=== PATIENT | female | born 1940 | race Caucasian/White ===

== ENCOUNTER → 2018-10-23 17:23 | Emergency (ER) | payer MEDICARE ==
[~2018-10-23 17:23] MED LIST: ALPRAZolam TAB* 0.5 MG PO ONE; Metoprolol Tartrate IV* 1 MG/ML 5 ML VIAL IV ONE; Metoprolol Tartrate TAB* 25 MG PO ONE; Potassium Chlor TAB* 20 MEQ TAB.ER PO ONE
[2018-10-23 18:23] LABS: Urine Appearance Clear; Urine Bacteria Absent (Absent); Urine Bilirubin Negative (Negative); Urine Blood Negative (Negative); Urine Color Yellow; Urine Glucose Negative (Negative); Urine Ketones Negative (Negative); Urine Nitrite Negative (Negative); Urine Protein Negative (Negative); Urine Red Blood Cell Absent (Absent); Urine Specific Gravity 1.004 (1.010-1.030); Urine Urobilinogen Negative (Negative); Urine White Blood Cell 1+(6-10/hpf) (Absent)
--- NOTE | 2018-10-23 21:38 | ED ---
Complex/Multi-Sys Presentation - HPI Summary HPI Summary: Patient is a 78 y/o F presenting to ED with complaints of palpitations and inability to urinate. Palpitations onset around 1630 today. Patient called PCP office today and was advised to come to [facility]. She additionally notes that she has been unable to urinate for the past two days. She states that she was at [facility] for bladder infection and had aflutter at the time. She notes no issues with urination previously. Pain is denied. Patient does not have urge to urinate at present. She states she was put on cardizem, but she had a reaction to cardizem and was subsequently advised to stop taking this medication. She states she became dizzy and experienced abdominal pain with cardizem. Patient is on Eliquis, which she has been on since leaving [facility], [place]. She is on a diuretic since yesterday and has bisoprolol, which she reports she was told to start taking tomorrow. On triage, pain is denied, nothing is noted to aggravate/alleviate Sx. Home medications and allergies are reviewed. - History Of Current Complaint Chief Complaint: EDUrogenitalProblems Time Seen by Provider: 10/23/18 21:07 Hx Obtained From: Patient Onset/Duration: Lasting Hours - palpitations, Lasting Days - inability to urinate, Still Present Timing: Hours - palpitations, Days - inability to urinate Severity Currently: None Aggravating Factor(s): nothing Alleviating Factor(s): nothing Associated Signs And Symptoms: Positive: Palpitations, Other - inability to urinate - Allergies/Home Medications Allergies/Adverse Reactions: Allergies Allergy/AdvReac Type Severity Reaction Status Date / Time amoxicillin Allergy Rash Verified 10/23/18 17:26 Home Medications: Home Medications Apixaban* [Eliquis*] 5 mg PO BID 10/23/18 [History Confirmed 10/23/18] Bisoprolol TAB* [Zebeta TAB*] 2.5 mg PO DAILY 10/23/18 [History Confirmed ] Gabapentin CAP(*) [Neurontin 100 mg CAP(*)] 100 mg PO TID 10/23/18 [History Confirmed 10/23/18] Torsemide TAB* [Demadex 20 MG*] 10 mg PO DAILY 10/23/18 [History Confirmed 10/23] PMH/Surg Hx/FS Hx/Imm Hx Endocrine/Hematology History: Reports: Hx Thyroid Disease - HYPOTHYROIDISM Musculoskeletal History: Reports: Hx Arthritis - BILATERAL FEET, HANDS, BACK Sensory History: Denies: Hx Contacts or Glasses, Hx Hearing Aid Opthamlomology History: Denies: Hx Contacts or Glasses - Surgical History Surgery Procedure, Year, and Place: ROTATOR CUFF SURGERY Hx Anesthesia Reactions: No Infectious Disease History: No Infectious Disease History: Denies: Traveled Outside the [place] in Last 30 Days - Social History Alcohol Use: Daily Substance Use Type: Reports: None Substance Use Comment - Amount & Last Used: 4 cups of coffee daily Smoking Status (MU): Never Smoked Tobacco Type: Cigarettes Amount Used/How Often: 1 PACK PER WEEK, 7 YEARS Length of Time of Smoking/Using Tobacco: 7 YEARS Have You Smoked in the Last Year: No Review of Systems Positive: Palpitations Genitourinary: Other - positive - urinary retention; negative - urge to urinate , pain All Other Systems Reviewed And Are Negative: Yes Physical Exam - Summary Physical Exam Summary: VITAL SIGNS: Reviewed. GENERAL: Patient is a well-developed and nourished female who is lying comfortable in the stretcher. Patient is not in any acute respiratory distress. HEAD AND FACE: No signs of trauma. No ecchymosis, hematomas or skull depressions. No sinus tenderness. EYES: PERRLA, EOMI x 2, No injected conjunctiva, no nystagmus. EARS: Hearing grossly intact. Ear canals and tympanic membranes are within normal limits. MOUTH: Oropharynx within normal limits. NECK: Supple, trachea is midline, no adenopathy, no JVD, no carotid bruit, no c- spine tenderness, neck with full ROM CHEST: Symmetric, no tenderness at palpation LUNGS: Clear to auscultation bilaterally. No wheezing or crackles. CVS: irregularly irregular, S1 and S2 present, no murmurs or gallops appreciated. ABDOMEN: Soft, non-tender. Suprapubic distention consistent with full bladder. No rebound no guarding, and no masses palpated. Bowel sounds are normal. EXTREMITIES: FROM in all major joints, no cyanosis or clubbing, BLE edema NEURO: Alert and oriented x 3. No acute neurological deficits. Speech is normal and follows commands. Neuro exam intact. SKIN: Dry and warm Triage Information Reviewed: Yes Vital Signs On Initial Exam: Initial Vitals Temp Pulse Resp BP Pulse Ox 98.6 F 83 18 128/102 98 10/23/18 17:26 10/23/18 17:26 10/23/18 17:26 10/23/18 17:26 10/23/18 17:26 Vital Signs Reviewed: Yes Diagnostics - Vital Signs Vital Signs Temp Pulse Resp BP Pulse Ox 10/23/18 19:33 97.7 F 120 18 154/105 99 10/23/18 17:26 98.6 F 83 18 128/102 98 - Laboratory Lab Results: Lab Results 10/23/18 Range/Units 17:50 Urine Color Yellow Urine Appearance Clear Urine pH 7.0 (5-9) Ur Specific [place] 1.004 L (1.010-1.030) Urine Protein Negative (Negative) Urine Ketones Negative (Negative) Urine Blood Negative (Negative) Urine Nitrate Negative (Negative) Urine Bilirubin Negative (Negative) Urine Urobilinogen Negative (Negative) Ur Leukocyte Esterase Trace A (Negative) Urine WBC (Auto) 1+(6-10/hpf) A (Absent) Urine RBC (Auto) Absent (Absent) Urine Bacteria Absent (Absent) Urine Glucose Negative (Negative) Result Diagrams: 10/23/18 22:17 10/23/18 22:17 Lab Statement: Any lab studies that have been ordered have been reviewed, and results considered in the medical decision making process. - Radiology CXR Radiology Interpretation Completed By: ED Physician Summary of Radiographic Findings: CXR showed no acute process, pending official report. - EKG 1942 Cardiac Rate: Other Rate - afib with rate of 143 BPM EKG Rhythm: Atrial Fibrillation ST Segment: Non-Specific Summary of EKG Findings: EKG showed afib with rate of 143 BPM, non-specific ST wave changes. Complex Multi-Symp Course/Dx Course Of Treatment: Patient is a 78 y/o F presenting to ED with complaints of palpitations and inability to urinate. Palpitations onset around 1630 today. She additionally notes that she has been unable to urinate for the past two days. She states that she was at [facility] for bladder infection and had aflutter at the time. She notes no issues with urination previously. Pain is denied. Patient does not have urge to urinate at present. She states she was put on cardizem, but she had a reaction to cardizem and was subsequently advised to stop taking this medication. She states she became dizzy and experienced abdominal pain with cardizem. Patient is on Eliquis, which she has been on since leaving [facility], [place]. She is on a diuretic since yesterday and has bisoprolol, which she reports she was told to start taking tomorrow. On physical exam, patient is noted to be irregularly irregular, has suprapubic distention consistent with full bladder, and BLE edema. neuro exam intact. EKG showed afib with rate of 143 BPM, non-specific ST wave changes. CXR no acute process. Labs showed MCH 33, absolute neuts 7.9, absolute lymphs 0.8, absolute monos 0.9, INR 1.42, APTT 40, sodium 133, potassium 3.4, chloride 97, glucose 107, AST 47, ALT 60, trop 0, BNP 342, TSH 32.04. UA showed trace leukocyte esterase and 1+ WBC. During ED course, patient received Xanax 0.5 mg PO, Lopressor 5 mg IV, Lopressor 25 mg PO, and klor con er tab 40 meq PO. Bladder scan had showed volume > 1000 cc, carroll catheter was placed. Patient has Hx of aflutter, patient is currently on Eliquis. She used to take Cardizem but does not do so anymore due to previous adverse reactions to this medication. Patient will start taking bisoprolol tomorrow for rate control. Patient will be sent home with catheter in place. Patient to follow up with PCP and urologist. She is agreeable. - Diagnoses Provider Diagnoses: Afib, Urinary retention Discharge - Sign-Out/Discharge Documenting (check all that apply): Patient Departure - discharge Patient Received Moderate/Deep Sedation with Procedure: No - Discharge Plan Condition: Stable Disposition: HOME Patient Education Materials: A-fib (Atrial Fibrillation) (ED), Acute Urinary Retention in Women (ED) Referrals: Bear Daniel MD [Primary Care Provider] - 3 Days Richard Longoria MD [Medical Doctor] - 3 Days Additional Instructions: RETURN TO ED FOR ANY NEW OR WORSENING SYMPTOMS. FOLLOW UP WITH UROLOGIST FRIDAY. - Attestation Statements Document Initiated by Scribe: Yes Documenting Scribe: QUINN VILLALOBOS Provider For Whom Scradriene is Documenting (Include Credential): MICHOACANO MORELOS MD Scribe Attestation: IQUINN, scribed for MICHOACANO MORELOS MD on 10/24/18 at 0159. Status of Scribe Document: Ready
[2018-10-23 22:25] LABS: ABS Basophils 0.1 10^3/ul (0-0.2); ABS Eosinophils 0.1 10^3/ul (0-0.6); ABS Lymphocytes 0.8 10^3/ul (1.0-4.8); ABS Monocytes 0.9 10^3/ul (0-0.8); ABS Neutrophils 7.9 10^3/ul (1.5-7.7); Eosinophil % 1.2 %; Hematocrit 38 % (35-47); Mean Corpuscular HGB Conc 34 g/dL (31-36); Mean Corpuscular Hemoglobin 33 pg (27-31); Mean Corpuscular Volume 96 fL (80-97); Mean Platelet Volume 7.4 fL (7.4-10.4); Platelet Count 430 10^3/uL (150-450); Red Blood Count 3.97 10^6 /uL (3.70-4.87); Red Cell Distribution Width 14 % (10-15); White Blood Count 9.7 10^3/uL (3.5-10.8)
[2018-10-23 22:36] LABS: INR 1.42 (0.82-1.09)
[2018-10-23 22:42] LABS: Albumin 3.7 g/dL (3.2-5.2); Albumin/Globulin Ratio 1.3 (1-3); BUN/Creatinine Ratio 16.4 (8-20); EGFR African American 114.8 (>60); EGFR Non-African American 94.9 (>60); Globulin 2.8 g/dL (2-4); Potassium 3.4 mmol/L (3.5-5.0); Total Bilirubin 0.3 mg/dL (0.2-1.0); Total Protein 6.5 g/dL (6.4-8.9)
[2018-10-23 23:09] LABS: TSH (Thyroid Stimulating Horm) 32.04 mcIU/mL (0.34-5.60)
[2018-10-23 23:52] VITALS: BP 128/109
== END | disposition home or self-care (01) ==
LOC: ED 17:23
DX: I48.91 Unspecified atrial fibrillation (principal); R33.9 Retention of urine, unspecified; E03.9 Hypothyroidism, unspecified; M19.90 Unspecified osteoarthritis, unspecified site; Z88.1 Allergy status to other antibiotic agents; Z79.01 Long term (current) use of anticoagulants; Z79.899 Other long term (current) drug therapy; Z87.891 Personal history of nicotine dependence
CPT/HCPCS: 36415; 71045; 80053; 81003; 81015; 83735; 83880; 84443; 84484; 85025; 85610; 85730; 87077; 87086; 87186; 93005; 96374; 99283; A9270-GY; J3490